=== PATIENT | male | born 1970 | race Caucasian/White ===

== ENCOUNTER 2018-01-06 22:45 | Inpatient (IN) | payer MEDICARE ==
[~2018-01-06] VITALS: Ht 182.9 cm; Wt 106.6 kg
[2018-01-07 00:16] LABS: BASOPHILS % 0.5 % (0.0-2.0); EOSINOPHILS % 1.1 % (0.0-5.0); HEMOGLOBIN. 14.3 g/dL (14.0-18.0); LYMPHOCYTES % 17.9 % (20.0-50.0); MEAN CORPUSCULAR HEMOGLOBIN 30.7 pg (28.0-32.0); MEAN PLATELET VOLUME 10.4 fl (7.4-10.4); MONOCYTES % 7.3 % (2.0-8.0); NEUTROPHILS % 73.2 % (40.0-76.0); PLATELET 135 x1000/uL (130-400); RED BLOOD CELL COUNT 4.65 mill/uL (4.7-6.1); RED CELL DISTRIBUTION WIDTH 13.7 % (11.6-14.6)
[2018-01-07 00:20] LABS: CHLORIDE 106 mEq/L (98-107)
[2018-01-07] MEDS ORDERED: ASPIRIN 81MG TABLET PO ONE (00:30)
[2018-01-07] MEDS ORDERED: ENOXAPARIN 40MG/0.4ML SYR SUBCUT SCH (04:45)
[2018-01-07] MEDS ORDERED: ONDANSETRON HCL 4MG/2ML INJ IV PRN (04:45)
[2018-01-07] MEDS ORDERED: DOCUSATE SODIUM 100MG CAPSULE PO PRN (04:45)
[2018-01-07] MEDS ORDERED: HYDROCODONE/APAP 7.5/325MG 1 TAB TABLET PO PRN (04:45)
[2018-01-07] MEDS ORDERED: MAGNESIUM/ALUMINUM HYDROXIDE/SIMETHICONE 30ML UDC PO PRN (04:45)
[2018-01-07] MEDS ORDERED: ACETAMINOPHEN 325MG TABLET PO PRN (04:45)
[2018-01-07] MEDS ORDERED: CLONIDINE 0.1MG TABLET PO PRN (04:45)
[2018-01-07] MEDS ORDERED: DIPHENHYDRAMINE 50MG/ML VIAL IV PRN (04:45)
[2018-01-07] MEDS ORDERED: IPRATROPIUM/ALBUTEROL 0.5-3(2.5)MG/3ML NEB INH PRN (04:45)
[2018-01-07] MEDS ORDERED: MORPHINE SULFATE 4 MG/ML CPJ (NOT FOR IM USE) IV PRN (04:45)
[2018-01-07] MEDS ORDERED: GUAIFENESIN 200MG/10ML SUGAR FREE UDC PO PRN (04:45)
[2018-01-07] MEDS ORDERED: NA PHOS,M-B/NA PHOS,DI-BA ENEMA 118ML PR PRN (04:45)
[2018-01-07] MEDS ORDERED: LORAZEPAM 2MG/ML CPJ IV PRN (04:45)
[2018-01-07] MEDS ORDERED: POTASSIUM CHLORIDE 20MEQ TABLET SR PO SCH (05:00)
[2018-01-07 06:28] LABS: CREATINE KINASE MB FRACTION 1.9 ng/mL (0.5-3.6)
[2018-01-07] MEDS ORDERED: QUET25TA MT (08:21)
[2018-01-07] MEDS: ASPIRIN 81MG EC TABLET PO SCH (09:46)
[2018-01-07 12:00] VITALS: BP 137/77
[2018-01-07 12:37] VITALS: BP 130/84
[2018-01-07] MEDS: ENOXAPARIN 30MG/0.3ML SYR SUBCUT SCH ×2 (12:44→20:59)
[2018-01-07 14:37] VITALS: BP 137/77
[2018-01-07 16:00] VITALS: BP 130/84
[2018-01-07 17:01] LABS: CREATINE KINASE 72 IU/L (39-308); CREATINE KINASE MB FRACTION 1.3 ng/mL (0.5-3.6)
[2018-01-07 20:00] VITALS: BP 128/79
[2018-01-07 23:34] LABS: CREATINE KINASE 55 IU/L (39-308)
[2018-01-08 00:08] VITALS: BP 100/67
[2018-01-08 04:47] VITALS: BP 115/69
[2018-01-08 08:00] VITALS: BP 135/84
[2018-01-08 08:08] LABS: BASOPHILS % 0.4 % (0.0-2.0); EOSINOPHILS % 2.6 % (0.0-5.0); HEMATOCRIT. 40.6 % (42.0-52.0); HEMOGLOBIN. 14.6 g/dL (14.0-18.0); MEAN CORPUSCULAR HEMOGLOBIN 31.1 pg (28.0-32.0); MEAN CORPUSCULAR VOLUME 86.7 fL (80.0-94.0); MEAN PLATELET VOLUME 10.1 fl (7.4-10.4); MONOCYTES % 9.4 % (2.0-8.0); NEUTROPHILS % 62.6 % (40.0-76.0); PLATELET 125 x1000/uL (130-400); RED BLOOD CELL COUNT 4.69 mill/uL (4.7-6.1); RED CELL DISTRIBUTION WIDTH 14.3 % (11.6-14.6)
[2018-01-08 08:11] LABS: CHLORIDE 107 mEq/L (98-107)
[2018-01-08 08:24] LABS: CREATINE KINASE 37 IU/L (39-308); CREATINE KINASE MB FRACTION < 1.0 ng/mL (0.5-3.6)
[2018-01-08] MEDS: ASPIRIN 81MG EC TABLET PO SCH (09:45)
[2018-01-08] MEDS: ENOXAPARIN 30MG/0.3ML SYR SUBCUT SCH (09:45)
[2018-01-08] MEDS ORDERED: IOHEXOL-350 100 ML BOTTLE ONE ×2 (12:23→12:41)
[2018-01-08 14:06] VITALS: BP 115/69
== END 2018-01-08 15:10 | disposition home or self-care (01) | DRG 641 ==
LOC: ER 22:45 → 6WST 01-07 00:32 → EDBEDREQ 01-07 00:57 → EDBEDREQTM 01-07 00:57 → EDBEDREQDT 01-07 00:57 → ENRESERV 01-07 10:09
PROVIDERS: ADMIT Internal Medicine; ATTEND Internal Medicine
DX: E87.6 Hypokalemia (principal); R07.9 Chest pain, unspecified; F20.9 Schizophrenia, unspecified; F17.210 Nicotine dependence, cigarettes, uncomplicated; I50.9 Heart failure, unspecified
CPT/HCPCS: 36415; 71045; 71275; 80061; 82550; 82553; 83036; 83880; 84439; 84443; 84484; 85379; 93005; 93306; 99285; J1650; Q9967